=== PATIENT | male | born 1965 | race Caucasian/White ===

== ENCOUNTER 2016-09-22 07:23 | Emergency (ER) | payer BC ==
[~2016-09-22] VITALS: Ht 175.3 cm; Wt 81.8 kg
[2016-09-22] MEDS ORDERED: PERCOCET 5/31 TABLET PO (08:58)
[2016-09-22] MEDS ORDERED: FLEXERIL10 MG PO (08:58)
[2016-09-22 09:05] VITALS: BP 135/82
== END 2016-09-22 09:11 | disposition home or self-care (01) ==
LOC: EME 07:23
DX: M54.40 Lumbago with sciatica, unspecified side (principal); F17.200 Nicotine dependence, unspecified, uncomplicated
CPT/HCPCS: 72100; 99281; 99283; J1100; J1885